=== PATIENT | male | born 1980 | race African-American/Black ===

== ENCOUNTER 2019-02-26 02:10 | Emergency (ER) | payer SELFPAY ==
[~2019-02-26] VITALS: Ht 193 cm; Wt 99.8 kg
--- NOTE | 2019-02-26 02:20 | NUR ---
ED Nurse Note: Pt arrived ED from home, c/o Yellowish discharge from penis for 3 days. No c/o pain. Pt is A/O X 4, Vital signs stable at this time, waiting for orders.
[2019-02-26 02:21] VITALS: BP 141/92
[2019-02-26] MEDS ORDERED: Azithromycin 250mg tab ORAL ONE (02:30)
[2019-02-26] MEDS ORDERED: Lidocaine 1% MPF 10mg/ml 5ml INJ ONE (02:30)
--- NOTE | 2019-02-26 02:31 | Emergency Room Report ---
History of Present Illness General Chief Complaint: Male Urogenital Problems Source: Patient Present Illness HPI Is a 38-year-old male with history of STD. He presents with chief complaint of penile discharge. Onset 3 days. He is sexually active. No protection. No nausea no vomiting. No fever. No other complaint. Allergies: Coded Allergies: No Known Allergies (Unverified , 02/26/19) Patient History Past Medical History: see triage record, old chart reviewed Past Surgical History: none Pertinent Family History: none Social History: Denies: smoking Immunizations: other Reviewed Nursing Documentation: PMH: Agreed; PSxH: Agreed Nursing Documentation-PMH Past Medical History: No Stated History Review of Systems Eye: Denies: eye pain, blurred vision ENT: Denies: ear pain, nose congestion, throat swelling Respiratory: Denies: cough, shortness of breath Cardiovascular: Denies: chest pain, palpitations Gastrointestinal: Denies: abdominal pain, diarrhea, nausea, vomiting Genitourinary: Reports: discharge Musculoskeletal: Denies: back pain, joint pain Skin: Denies: rash Neurological: Denies: headache, numbness Endocrine: Denies: increased thirst, increased urine Hematologic/Lymphatic: Denies: easy bruising All Other Systems: negative except mentioned in HPI Physical Exam Vital Signs Date Time Temp Pulse Resp B/P (MAP) Pulse Ox O2 Delivery O2 Flow Rate FiO2 02/26/19 02:15 98.4 82 16 140/95 97 Room Air vitals unremarkable Sp02 EP Interpretation: reviewed, normal General Appearance: well appearing, no apparent distress, alert Head: normocephalic, atraumatic Eyes: bilateral eye PERRL, bilateral eye EOMI ENT: hearing grossly normal, normal pharynx Neck: full range of motion, supple, no meningismus Respiratory: chest non-tender, lungs clear, normal breath sounds Cardiovascular #1: regular rate, rhythm, no murmur Gastrointestinal: normal bowel sounds, non tender, no mass, no organomegaly, no bruit, non-distended Genitourinary: other - Yellowish/ greenish discharge Musculoskeletal: back normal, gait/station normal, normal range of motion Psychiatric: mood/affect normal Skin: warm/dry Medical Decision Making Diagnostic Impression: Primary Impression: Urethritis ER Course Patient presents with a urethritis. Most likely gonorrhea. No evidence of systemic spread. We'll discharge home. Recommend outpatient testing for HIV, hepatitis, syphilis and other STDs. Last Vital Signs Date Time Temp Pulse Resp B/P (MAP) Pulse Ox O2 Delivery O2 Flow Rate FiO2 02/26/19 02:21 98.4 76 16 141/92 97 Room Air Status: improved Disposition: HOME, SELF-CARE Condition: Stable Scripts No Active Prescriptions or Reported Meds Referrals: NOT CHOSEN IPA/MD,REFERRING (PCP) Patient Instructions: Urethritis, Adult Additional Instructions: Have your partner is treated. Use protection. Recommend outpatient testing for hepatitis, syphilis, HIV, and other STDs. Follow-up with your doctor in 7 days as needed. Return if worse. Krishan Washburn MD Feb 26, 2019 02:31
[2019-02-26 02:46] VITALS: BP 140/87
--- NOTE | 2019-02-26 02:49 | NUR ---
ER DISCHARGE NOTE: Patient is cleared to be discharged per Dr. Washburn. Meds given as ordered. Pt is A/O x4 on room air with stable vital signs. Pt was given D/C and prescription instructions and pt was able to verbalize understanding. Pt's ID band removed. Pt is able to ambulate with steady gait and took all belongings.
== END 2019-02-26 02:46 | disposition home or self-care (01) ==
LOC: EMR 02:20
DX: N34.2 Other urethritis (principal)
CPT/HCPCS: 96372; 96374; 99284; J0696